=== PATIENT | female | born 1970 | race Caucasian/White ===

== ENCOUNTER 2017-07-09 11:21 | Outpatient (CLI) | payer OTHER ==
--- NOTE | 2017-07-09 11:50 | XRAY Report ---
THREE-VIEW RIGHT FIFTH TOE: 07/09/2017 CLINICAL INDICATION: Pain. FINDINGS: AP, lateral, oblique views of the right 5th toe demonstrate a minimally displaced fracture of the shaft of the proximal phalanx. Soft tissue swelling is present. The joint spaces appear unr emarkable. IMPRESSION: MINIMALLY DISPLACED FRACTURE OF THE SHAFT OF THE PROXIMAL PHALANX OF THE FIFTH TOE. JOB #: [id number] EXT JOB #:[id number]
== END 2017-07-09 11:22 | disposition home or self-care (01) ==
LOC: DI.S 11:21
PROVIDERS: ATTEND Internal Medicine
DX: S92.511A Displaced fracture of proximal phalanx of right lesser toe(s), initial encounter for closed fracture (principal); M79.674 Pain in right toe(s)
CPT/HCPCS: 73660

== ENCOUNTER 2018-02-06 13:04 | Emergency (ER) | payer OTHER ==
--- NOTE | 2018-02-06 14:21 | ED Physician Documentation ---
PD HPI URI - Stated complaint Stated Complaint: THROAT PX - Chief complaint Chief Complaint: Heent - History obtained from History obtained from: Patient - History of Present Illness Timing details: Gradual onset Pain level max: 5 Pain level now: 5 Associated symptoms: Sore throat, Dry cough, Dyspnea Improves by: Rest Worsened by: Other (swallowing) Recently seen: Not recently seen - Additional information Additional information: 47 year old female, states sick since october. Sore throat for the past week. Not taking anything for this. Smokes 1ppd. No fevers. Dry cough. No vomiting. Worse with swallowing. Better with not eating. Review of Systems Constitutional: denies: Fever, Chills Nose: reports: Congestion Throat: denies: Sore throat Cardiac: denies: Chest pain / pressure Respiratory: reports: Wheezing GI: denies: Vomiting Skin: denies: Rash Musculoskeletal: denies: Neck pain, Back pain Neurologic: denies: Headache PD PAST MEDICAL HISTORY - Past Medical History Past Medical History: No - Past Surgical History Past Surgical History: No - Present Medications Home Medications: Ambulatory Orders Medication Instructions Recorded Confirmed Albuterol Sulf [Ventolin Hfa 1 - 2 puffs INH Q4HR PRN #1 inhaler 02/06/18 Inhaler] Benzonatate [Tessalon Perle] 100 - 200 mg PO TID PRN #30 capsule 02/06/18 Cetirizine HCl/Pseudoephedrine 1 each PO BID PRN #30 tab.er.12h 02/06/18 [Zyrtec-D Tablet] Ibuprofen [Motrin] 800 mg PO Q8H PRN #30 tablet 02/06/18 - Allergies Allergies/Adverse Reactions: Allergies Allergy/AdvReac Type Severity Reaction Status Date / Time vancomycin Allergy Hives Verified 02/06/18 13:16 - Social History Does the pt smoke?: No Smoking Status: Never smoker Does the pt drink ETOH?: Yes ETOH Use: Beer Does the pt have substance abuse?: No PD ED PE NORMAL - Vitals Vital signs reviewed: Yes - General General: Alert and oriented X 3, No acute distress - HEENT HEENT: PERRL, Ears normal, Moist mucous membranes, Other (posterior oropharyngeal erythema without tonsillar exudates. Uvula midline. normal phonation. No trismus. ) - Neck Neck: Supple, no meningeal sign, No adenopathy - Cardiac Cardiac: RRR, Strong equal pulses - Respiratory Respiratory: No respiratory distress, Other (wheezing B) - Abdomen Abdomen: Soft, Non tender, Non distended - Derm Derm: Warm and dry, No rash - Neuro Neuro: Alert and oriented X 3 - Psych Psych: Normal mood, Normal affect Results - Vitals Vitals: Vital Signs - 24 hr 02/06/18 02/06/18 02/06/18 13:14 14:40 15:02 Temperature 37.2 C Heart Rate 103 H 100 107 H Respiratory 18 16 18 Rate Blood Pressure 146/89 H 145/88 H O2 Saturation 99 97 Oxygen O2 Source Room air - Labs Labs: Laboratory Tests 02/06/18 13:20 Group A Strep Rapid Negative PD MEDICAL DECISION MAKING - ED course Complexity details: reviewed results, re-evaluated patient, considered differential, d/w patient ED course: Patient is a 47-year-old female with intermittent illnesses since October. She feels much better after breathing treatment and lungs are clear to auscultation bilaterally. Also given dexamethasone here. Rapid strep is negative. Will place on decongestants and cough medication for home. Also will place on an inhaler for home. Counseled to stop smoking. Patient is well- appearing, nontoxic. No hypoxia. No respiratory distress. Patient counseled regarding signs and symptoms for which I believe and urgent re-evaluation would be necessary. Patient with good understanding of and agreement to plan and is comfortable going home at this time This document was made in part using voice recognition software. While efforts are made to proofread this document, sound alike and grammatical errors may occur. Departure - Departure Disposition: 01 Home, Self Care Clinical Impression: Viral URI, Viral pharyngitis Condition: Good Instructions: ED Pharyngitis Viral, ED Viral Syndrome Follow-Up: your,doctor in 1 week [Other] Prescriptions: Albuterol Sulf [Ventolin Hfa Inhaler] 1 - 2 puffs INH Q4HR PRN #1 inhaler PRN Reason: Shortness Of Air/Wheezing Benzonatate [Tessalon Perle] 100 - 200 mg PO TID PRN #30 capsule PRN Reason: Cough Cetirizine HCl/Pseudoephedrine [Zyrtec-D Tablet] 1 each PO BID PRN #30 tab.er.12h PRN Reason: Nasal Congestion Ibuprofen [Motrin] 800 mg PO Q8H PRN #30 tablet PRN Reason: PAIN &/OR FEVER Comments: Drink plenty of fluids at home. Return if you worsen. Your strep test is negative today. Discharge Date/Time: 02/06/18 15:02
[2018-02-06] MEDS ORDERED: DEXAMETHASONE 10 MG/ML VIAL PO STA (14:22)
[2018-02-06] MEDS ORDERED: IPRATROPIUM/ALBUTEROL 3 ML NEB INH STA (14:34)
[2018-02-06 15:04] VITALS: BP 145/88
== END 2018-02-06 15:02 | disposition home or self-care (01) ==
LOC: ED 13:04
DX: J06.9 Acute upper respiratory infection, unspecified (principal); J02.9 Acute pharyngitis, unspecified; B97.89 Other viral agents as the cause of diseases classified elsewhere
CPT/HCPCS: 87070; 87430; 94664; 99283

== ENCOUNTER 2020-08-29 10:16 | Outpatient (CLI) | payer MEDICAID | END 2020-08-29 10:17 | disposition home or self-care (01) | LOC: COV 10:16 | PROVIDERS: ATTEND Surgery | DX: Z01.812 Encounter for preprocedural laboratory examination (principal); Z20.828 Contact with and (suspected) exposure to other viral communicable diseases; K42.9 Umbilical hernia without obstruction or gangrene ==

== ENCOUNTER 2020-09-02 06:16 | Day surgery (SDC) | payer MEDICAID ==
[2020-09-02] MEDS ORDERED: CEFAZOLIN SODIUM IN 0.9 % NACL 2 GM/100 ML BAG IV ONE (06:47)
[2020-09-02 06:57] LABS: HCG UR QUAL NEGATIVE
[2020-09-02] MEDS ORDERED: BUPIVACAINE 0.5% PF 30 ML VIAL ONE (07:00)
[2020-09-02] MEDS ORDERED: ceFAZolin 1 GM VIAL ONE (07:00)
[2020-09-02] MEDS ORDERED: LIDOCAINE 1%-EPI 1:100000 20 ML MDV ONE (07:00)
[2020-09-02] MEDS ORDERED: SODIUM CHLORIDE 0.9% 10 ML ONE (07:15)
--- NOTE | 2020-09-02 07:32 | ANESTHESIA ---
Pre-Anesthesia VS, & Labs - Diagnosis Umbilical Hernia - Procedure Repair Umbilical Hernia Vital Signs: Temp Pulse Resp BP Pulse Ox 36.5 C 76 18 142/105 H 99 09/02/20 06:48 09/02/20 06:48 09/02/20 06:48 09/02/20 06:48 09/02/20 06:48 Height: 5 ft 6 in Weight (kg): 62.4 kg Body Mass Index: 22.1 BMI Classification: Healthy weight - NPO >8 hours - Is Patient ?: No - Lab Results Lab results reviewed: Yes Home Medications and Allergies Home Medications: Ambulatory Orders No Known Home Medications 08/20/20 No Known Home Medications 08/20/20 Allergies/Adverse Reactions: Allergies Allergy/AdvReac Type Severity Reaction Status Date / Time vancomycin Allergy Hives Verified 02/06/18 13:16 Anes History & Medical History - Anesthetic History Anesthesia Complications: reports: Other-see comment (Never had anesthesia) Family history of Anesthesia Complications: Denies Family history of Malignant Hyperthermia: Denies - Medical History Cardiovascular: reports: Hypertension (Borderline, monitoring self, no meds) Pulmonary: reports: None Gastrointestinal: reports: GERD (Occasional. Will take tums if needed), Other Urinary: reports: None Neuro: reports: None Musculoskeletal: reports: None Endocrine/Autoimmune: reports: None Skin: reports: None Smoking Status: Current every day smoker Psychosocial: reports: Alcohol (Raine ETOH from 1 beer to 10.) History of Cancer?: No Exam General: Alert, Oriented x3, Cooperative, No acute distress Dental: WNL Mouth Opening: Greater than 4 Fingerbreadths Neck Mobility: Normal Mallampati classification: I Thyromental Distance: 4-6 cm Respiratory: Lungs clear Cardiovascular: Regular rate, Normal S1, Normal S2, No murmurs Neurological: Normal speech Mental/Cognitive Status: Alert/Oriented X3 Cognitive Status: Within normal limits Plan Anesthesia Type: General Consent for Procedure(s) Verified and Reviewed: Yes Code Status: Attempt Resuscitation ASA classification: 2-Mild systemic disease Is this case an emergency?: No (Discussed anesthesia, quetions answered, consent signed)
[2020-09-02] MEDS ORDERED: BUPIVACAINE 0.5% PF 30 ML VIAL INFIL ONE ×2 (08:34)
[2020-09-02] MEDS ORDERED: ceFAZolin 1 GM VIAL IR ONE (08:35)
[2020-09-02] MEDS ORDERED: LIDOCAINE 1%-EPI 1:100000 20 ML MDV SUBQ ONE ×2 (08:35)
[2020-09-02] MEDS ORDERED: LACTATED RINGERS 1,000 ML IV ONE ×2 (09:19→09:37)
[2020-09-02] MEDS ORDERED: MORPHINE 2 MG/ML CARPUJECT IVP PRN (09:28)
[2020-09-02] MEDS ORDERED: ONDANSETRON 4 MG/2 ML VIAL IVP PRN ×2 (09:28→09:41)
[2020-09-02] MEDS ORDERED: fentaNYL 100 MCG/2 ML VIAL IVP PRN (09:28)
[2020-09-02] MEDS ORDERED: HYDROmorphone 0.5 MG/0.5 ML SYRINGE IVP PRN (09:28)
[2020-09-02] MEDS ORDERED: ATROPINE ABBOJECT 1 MG/10 ML SYRINGE IVP PRN (09:28)
[2020-09-02] MEDS ORDERED: METOCLOPRAMIDE 10 MG/2 ML VIAL IVP PRN (09:28)
[2020-09-02] MEDS ORDERED: NALOXONE 0.4 MG/ML VIAL IVP PRN (09:28)
[2020-09-02] MEDS ORDERED: ePHEDrine 50 MG/ML VIAL IVP PRN (09:28)
[2020-09-02] MEDS ORDERED: oxyCODONE 5 MG TABLET PO PRN (09:41)
[2020-09-02] MEDS ORDERED: IBUPROFEN 600 MG TABLET PO PRN (09:41)
[2020-09-02] MEDS ORDERED: ACETAMINOPHEN 325 MG TABLET PO PRN (09:41)
--- NOTE | 2020-09-02 09:59 | OPERATIVE REPORT ---
Operative Report - General Planned Procedure: Umbilical hernia repair Pre-Op Diagnosis: Incarcerated umbilical hernia Procedure Performed: Umbilical hernia repair Post Op Diagnosis: Incarcerated umbilical hernia - Procedure Note Primary Surgeon: Argelia Anesthesia Provider: LOU Holman Anesthesia Technique: General LMA, Local Pathology: None Estimated Blood Loss (mL): 20 Findings: 2 cm umbilical defect Complications: None apparent - Other Other Information/Narrative: After obtaining informed consent, the patient is brought to the operating room and placed in the supine position on the operating table. Following successful induction of general endotracheal anesthesia, appropriate padding of all bony prominences, and placement of appropriate monitors, the abdomen was prepped and draped in the standard surgical fashion. A timeout was held per scope protocol. All elements of the surgical safety checklist were followed before, during, and after the procedure. Following infiltration with local anesthetic to create a field block, an incision was created directly through the umbilicus and over the palpable and visible defect. This was carried through the skin and subcutaneous tissue. The umbilical tissue was then freed from the umbilical remnant for complete exposure to the hernia sack. The defect was noted to be approximately 3.0 cm in greatest dimension. The hernia sac itself was approximately 4 cm. The hernia sac was carefully dissected free from the overlying skin and underlying fascial tissue as well as the surrounding areolar tissue. The contents of the sac were eased back into the abdominal cavity. The surgeon's finger was then inserted into the defect and the anterior abdominal wall palpated internally to be sure there was enough space for mesh placement. No significant intra-abdominal adhesions were appreciated. We elected to repair the defect with an 11 x [address] Hernia Patch. The mesh was dipped in Ancef solution and deployed into the defect. It was straightened and flattened in the peritoneal space up against the abdominal wall. Placement was checked and adjusted. Taking sutures of 0 Vicryl were placed at the 4 quadrants. Once we were satisfied placement was ideal, the anterior leaflet of the mesh pocket was sewn to the fascia anteriorly superiorly and inferiorly. The 5mm Covidian Absorbatac Device was used to secure the mesh to the anterior abdominal wall in a circumferential fashion.. The wound was checked for hemostasis and irrigated with Ancef containing solution. It was aspirated free of all fluid and particulate matter. The umbilicus was reconstructed with interrupted Vicryl suture. The incision was closed in layers with Vicryl and Monocryl suture and Dermabond was applied to the skin. All sponge, needle, and instrument counts were correct at the conclusion of the case. The patient was allowed awaken from anesthesia without difficulty and taken to the postanesthesia care unit in good condition.
[2020-09-02] MEDS ORDERED: LACTATED RINGERS 1,000 ML IV SCH (10:00)
--- NOTE | 2020-09-02 10:10 | ANESTHESIA POST OP EVALUATION ---
Anesthesia Post Eval - Post Anesthesia Eval Vitals: Last Vital Signs Temp 36.8 C 09/02/20 10:00 Pulse 72 09/02/20 10:00 Resp 18 09/02/20 10:00 BP 145/96 H 09/02/20 10:04 Pulse Ox 96 09/02/20 10:00 CV Function Including HR & BP: positive: Stable Pain Control: positive: Satisfactory Nausea & Vomiting: positive: Negative Mental Status: positive: Baseline Anesthesia Complications: positive: None (Awake, alert, taking PO easily. Mild tenderness to surgical site.)
[2020-09-02 10:18] VITALS: BP 138/94
== END 2020-09-02 06:17 | disposition home or self-care (01) ==
LOC: SDS 06:16
PROVIDERS: ATTEND Surgery
DX: K42.0 Umbilical hernia with obstruction, without gangrene (principal); I10 Essential (primary) hypertension
CPT/HCPCS: 49587; 81025; A9270; J0690; J7120

== ENCOUNTER 2021-06-10 00:39 | Outpatient (CLI) | payer MEDICAID | END 2021-06-10 00:40 | disposition critical access hospital (66) | LOC: EMS 00:39 | DX: S09.90XA Unspecified injury of head, initial encounter (principal); R51.9 Headache, unspecified; W18.39XA Other fall on same level, initial encounter; Y93.89 Activity, other specified | CPT/HCPCS: A0425; A0427 ==

== ENCOUNTER 2021-06-10 01:12 | Emergency (ER) | payer MEDICAID ==
--- NOTE | 2021-06-10 01:20 | ED Physician Documentation ---
PD HPI HEAD INJURY - Stated complaint Stated Complaint: GLF/ HEAD INJ - History obtained from History obtained from: Friend, EMS - History of Present Illness Mechanism of head injury: Fell (her friend reports through EMS that they were drinking and patient lost balance, fell backward and struck back of head. Reported LOC for few minutes. EMS called and patient rousable on their arrival. Seems sleepy. Bump back of head. Moves all extremities and denies pains other than some headache.) Timing - onset: How many minutes ago (20-30), Today Location of injury: Back Associated symptoms: LOC, AMS (sleepy but had also had large amount alcohol). No: Nausea / vomiting, Neck pain Symptoms worsen with: Palpation Contributing factors: Intoxicated. No: Anticoagulated Similar symptoms before: Has not had sx before Recently seen: Not recently seen Review of Systems Unable to obtain: Intoxicated Cardiac: denies: Chest pain / pressure GI: denies: Abdominal Pain, Vomiting, Diarrhea PD PAST MEDICAL HISTORY - Past Medical History Cardiovascular: Hypertension (Borderline, monitoring self, no meds) Respiratory: None Neuro: None Endocrine/Autoimmune: None GI: GERD (Occasional. Will take tums if needed), Other : None HEENT: Chronic vision loss Psych: None Musculoskeletal: None Derm: None - Past Surgical History Past Surgical History: No - Present Medications Home Medications: Ambulatory Orders Medication Instructions Recorded Confirmed No Known Home Medications 06/10/21 06/10/21 - Allergies Allergies/Adverse Reactions: Allergies Allergy/AdvReac Type Severity Reaction Status Date / Time vancomycin Allergy Hives Verified 06/10/21 01:24 - Social History Does the pt smoke?: Yes Smoking Status: Current every day smoker Does the pt drink ETOH?: Yes Does the pt have substance abuse?: No - Immunizations Immunizations are current?: Yes PD ED PE NORMAL - Vitals Vital signs reviewed: Yes - General General: No acute distress, Well developed/nourished, Other (sleepy but rousable to verbal and light tactile. Answers questions appropriately. ) - HEENT HEENT: PERRL, EOMI, Other (back of head wiqth tender and swollen scalp area. No bleeding. ) - Neck Neck: Supple, no meningeal sign, No bony TTP - Cardiac Cardiac: RRR, No murmur - Respiratory Respiratory: Clear bilaterally, Other (no chestwall tenderness) - Abdomen Abdomen: Soft, Non tender - Derm Derm: Normal color, Warm and dry - Neuro Neuro: No motor deficit, Normal speech. No: Alert and oriented X 3 Eye Opening: To Voice Motor: Obeys Commands Verbal: Oriented GCS Score: 14 Results - Vitals Vitals: Vital Signs - 24 hr 06/10/21 06/10/21 06/10/21 01:21 01:24 03:43 Temperature 97.7 C H Heart Rate 78 78 68 Respiratory 18 16 16 Rate Blood Pressure 114/81 H 114/81 H 115/98 H O2 Saturation 94 99 99 Oxygen O2 Source Room air - Labs Labs: Laboratory Tests 06/10/21 06/10/21 01:25 01:25 WBC 9.4 RBC 4.34 Hgb 13.7 Hct 40.9 MCV 94.2 MCH 31.6 H MCHC 33.5 RDW 13.2 Plt Count 297 MPV 9.8 Neut # (Auto) 4.2 Lymph # (Auto) 4.0 H Drew # (Auto) 0.7 Eos # (Auto) 0.4 Baso # (Auto) 0.1 Absolute Nucleated RBC 0.00 Nucleated RBC % 0.0 Sodium 134 L Potassium 3.6 Chloride 100 L Carbon Dioxide 22 Anion Gap 12.0 BUN 10 Creatinine 0.5 Estimated GFR (MDRD) 131 Glucose 102 H Calcium 8.6 Magnesium 2.5 Total Bilirubin 0.7 AST 19 ALT 18 Alkaline Phosphatase 56 Total Protein 7.0 Albumin 4.0 Globulin 3.0 Albumin/Globulin Ratio 1.3 Lipase 26 Ethyl Alcohol 295.7 - Rads (name of study) head CT Radiology: Prelim report reviewed (no ICH), See rad report cervical spine CT Radiology: Prelim report reviewed (no fractures.), See rad report PD MEDICAL DECISION MAKING - ED course Complexity details: re-evaluated patient (she is subsequently up and walking to bathroom independently and safely. here, seems sober, and wanting to take her home to rest there. ), considered differential (intoxicated and fell and struck head. Reported LOC for few minutes. Could be mild concussive versus altered LOC from alcohol. ), d/w patient Departure - Departure Disposition: 01 Home, Self Care Clinical Impression: Intoxication Fall from slip, trip, or stumble Qualifiers: Encounter type: initial encounter Qualified Code(s): W01.0XXA - Fall on same level from slipping, tripping and stumbling without subsequent striking against object, initial encounter Scalp contusion Qualifiers: Encounter type: initial encounter Qualified Code(s): S00.03XA - Contusion of scalp, initial encounter Condition: Stable Record reviewed to determine appropriate education?: Yes Comments: No signs of skull fracture nor intracranial bleeding on the CT scan. The neck appears normal on CT as well. You will be sore in the scalp area swelling for a few days. Tylenol if needed for pains. Avoid excess alcohol. Stay well-hydrated. Discharge Date/Time: 06/10/21 03:44
[2021-06-10 01:31] LABS: BASOPHILS # (AUTO) 0.1 10^3/uL (0.0-0.1); BASOPHILS % (AUTO) 0.9 %; EOSINOPHILS # (AUTO) 0.4 10^3/uL (0.0-0.7); EOSINOPHILS % (AUTO) 3.9 %; HCT - HEMATOCRIT 40.9 % (37.0-47.0); HGB - HEMOGLOBIN 13.7 g/dL (12.0-16.0); LYMPHOCYTES % (AUTO) 42.6 %; MEAN CORPUSCULAR HEMOGLOBIN 31.6 pg (27.0-31.0); MEAN CORPUSCULAR HGB CONC 33.5 g/dL (32.0-36.0); MEAN CORPUSCULAR VOLUME 94.2 fL (81.0-99.0); MEAN PLATELET VOLUME 9.8 fL (7.9-10.8); MONOCYTES # (AUTO) 0.7 10^3/uL (0.0-1.0); MONOCYTES % (AUTO) 7.4 %; NEUTROPHILS # (AUTO) 4.2 10^3/uL (1.5-6.6); NEUTROPHILS % (AUTO) 44.9 %; PLT - PLATELET COUNT 297 10^3/uL (130-450); RED BLOOD COUNT 4.34 10^6/uL (4.20-5.40); RED CELL DISTRIBUTION WIDTH 13.2 % (12.0-15.0); WHITE BLOOD COUNT 9.4 x10^3/uL (4.8-10.8)
[2021-06-10 01:49] LABS: ALBUMIN/GLOBULIN RATIO 1.3 (1.0-2.2); BILIRUBIN,TOTAL 0.7 mg/dL (0.2-1.0); CALCIUM 8.6 mg/dL (8.5-10.3); CREATININE 0.5 mg/dL (0.4-1.0); ETOH - ETHANOL 295.7 mg/dL; MAGNESIUM 2.5 mg/dL (1.7-2.8); POTASSIUM 3.6 mmol/L (3.5-5.0)
[2021-06-10 03:44] VITALS: BP 115/98
--- NOTE | 2021-06-10 07:22 | CT Report ---
PROCEDURE: HEAD WO INDICATIONS: fell and struck head; intoxicated TECHNIQUE: Noncontrast 4.5 mm thick angled axial sections acquired from the foramen magnum to the vertex. For r adiation dose reduction, the following was used: automated exposure control, adjustment of mA and/or kV according to patient size. COMPARISON: None. FINDINGS: Image quality: Excellent. CSF spaces: Basal cisterns are patent. No extra-axial fluid collections. Ventricles are normal in size and shape. Brain: No midline shift. No intracranial masses or hemorrhage. Diaz-white matter interface is norm al. Skull and face: Calvarium and visualized facial bones are intact, without suspicious lesions. Small right parietal scalp contusion. Sinuses: Visualized sinuses and mastoids are clear. IMPRESSION: No acute intracranial disease process. Reviewed by: Radha Gomez MD, PhD on 06/10/2021 7:20 AM PDT Approved by: Radha Gomez MD, PhD on 06/10/2021 7:20 AM PDT Station ID: [id number]
--- NOTE | 2021-06-10 07:25 | CT Report ---
PROCEDURE: CERVICAL SPINE WO INDICATIONS: fall and struck head; intoxicated TECHNIQUE: Noncontrast 3 mm thick sections acquired from the skull base to the T4 level. Sagittal and coronal r eformats were then constructed. For radiation dose reduction, the following was used: automated exp osure control, adjustment of mA and/or kV according to patient size. COMPARISON: None. FINDINGS: Image quality: Excellent. Bones: No fractures or dislocations. Visualized superior ribs are intact. Spine degenerative disc disease and facet arthropathy are noted. Soft tissues: Prevertebral soft tissues are normal in thickness. No paravertebral hematomas. No ap ical pneumothoraces. Groundglass opacities and scattered septal prominence in the lung apices. IMPRESSION: 1. No fracture. No acute osseous lesion. If there is continued clinical concern for pathology, then M RI should be considered for further evaluation. 2. Biapical ground glass opacities and scattered interstitial prominence turning for pneumonitis. Reviewed by: Radha Gomez MD, PhD on 06/10/2021 7:23 AM PDT Approved by: Radha Gomez MD, PhD on 06/10/2021 7:23 AM PDT Station ID: [id number]
== END 2021-06-10 03:44 | disposition home or self-care (01) ==
LOC: EDUNIT# → SUPCPDRO 01:12 → ED 01:12
DX: S00.03XA Contusion of scalp, initial encounter (principal); W01.10XA Fall on same level from slipping, tripping and stumbling with subsequent striking against unspecified object, initial encounter; F10.129 Alcohol abuse with intoxication, unspecified; I10 Essential (primary) hypertension; F17.200 Nicotine dependence, unspecified, uncomplicated
CPT/HCPCS: 36415; 80053; 80320; 83690; 83735; 85025; 99282; 99284

== ENCOUNTER 2024-08-02 09:52 | Outpatient (CLI) | payer OTHER ==
--- NOTE | 2024-08-02 15:30 | Mammography Report ---
BILATERAL FIRST EVER DIGITAL SCREENING MAMMOGRAM 3D/2D: 08/02/2024 CLINICAL: Routine screening. No prior exams were available for comparison. The breasts are almost entirely fatty (category a/<25% glandular tissue). There is an oval equal density focal asymmetry with an indistinct margin in the right breast at 12 o' clock anterior depth. No other significant masses, calcifications, or other findings are seen in either breast. IMPRESSION: INCOMPLETE: NEED ADDITIONAL IMAGING EVALUATION The oval equal density focal asymmetry in the right breast is indeterminate. Additional views with p ossible ultrasound are recommended. Based on the Tyrer Cuzick model (a risk assessment model) the patient's lifetime risk is 4.6% and her 10 year risk is 1.2%. According to the ACR, ACS, and NCCN guidelines, an annual breast MRI exam ronda g with mammogram is recommended if the patient's lifetime risk is 20% or greater. This exam was interpreted at Station ID: [id number]. NOTE: For mammograms, a report in lay terms will be sent to the patient. Approximately 15% of breast malignancies will not be visualized mammographically. In the management of a palpable breast mass, a negative mammogram must not discourage biopsy of a clinically suspicious lesion. Electronically Signed By: Sherly [email or web address]:08/02/2024 13:09:29 ACR BI-RADS Category 0: Incomplete: Need Additional Imaging Evaluation 3340F PARENCHYMAL PATTERN: (F) - The breast(s) demonstrate(s) diffuse fatty replacement. BI-RADS CATEGORY: (0) - 0 Mammo and [place] [id number] Immediate follow-up LATERALITY: (B)
== END 2024-08-02 09:53 | disposition home or self-care (01) ==
LOC: DI 09:52
DX: Z12.31 Encounter for screening mammogram for malignant neoplasm of breast (principal); R92.8 Other abnormal and inconclusive findings on diagnostic imaging of breast